=== PATIENT | male | born 1990 | race Caucasian/White ===

== ENCOUNTER 2021-04-30 00:58 | Inpatient (IN) | payer OTHER ==
[2021-04-30 01:04] LABS: Glucose,Whole Blood 99 mg/dL (75-99)
[2021-04-30] MEDS ORDERED: HYDROmorphone 1 MG/ML 1 ML SYRINGE IVP STA ×3 (01:05→02:31)
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
[2021-04-30 01:19] LABS: Basophils # (A) 0.1 k/uL (0-0.2); Basophils % (A) 1 %; Eosinophils # (A) 0.4 k/uL (0-0.7); Eosinophils % (A) 5 %; HCT 43.1 % (39.0-53.0); HGB 14.9 gm/dL (13.0-17.5); Lymphocytes # (A) 3.7 k/uL (1.0-4.8); Lymphocytes % (A) 41 %; MCH 33.4 pg (25.0-35.0); MCHC 34.6 g/dL (31.0-37.0); MCV 96.5 fL (80.0-100.0); Mean Platelet Volume 7.9; Monocytes # (A) 0.7 k/uL (0-1.0); Monocytes % (A) 7 %; Neutrophils # (A) 3.9 k/uL (1.3-7.7); Neutrophils % (A) 43 %; Platelet Count 251 k/uL (150-450); RBC 4.47 m/uL (4.30-5.90); RDW 12.8 % (11.5-15.5)
[2021-04-30 01:34] LABS: ALT 38 U/L (4-49); AST 39 U/L (17-59); African American GFR (CKD) >90 (>60 ml/min/1.73 sqM); Albumin 4.2 g/dL (3.5-5.0); Alkaline Phosphatase 58 U/L (38-126); Anion Gap 9 mmol/L; Blood Urea Nitrogen 12 mg/dL (9-20); Calcium 8.8 mg/dL (8.4-10.2); Carbon Dioxide 22 mmol/L (22-30); Chloride 103 mmol/L (98-107); Glucose 99 mg/dL (74-99); Non-African American GFR(CKD) >90 (>60 ml/min/1.73 sqM); Sodium 134 mmol/L (137-145); Total Bilirubin 0.4 mg/dL (0.2-1.3); Total Protein 6.7 g/dL (6.3-8.2)
[2021-04-30 01:35] LABS: Prothrombin Time 10.4 sec (9.0-12.0)
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
[2021-04-30 01:51] LABS: Alcohol 211 mg/dL; Potassium 4.2 mmol/L (3.5-5.1)
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
[2021-04-30] MEDS ORDERED: SODIUM CHLORIDE 0.9% 500 ML 500 ML IV ONE (02:21)
--- NOTE | 2021-04-30 02:21 | XR ---
EXAMINATION TYPE: XR foot limited LT DATE OF EXAM: 04/30/2021 COMPARISON: NONE HISTORY: Pain TECHNIQUE: 3 views FINDINGS: The metatarsals are intact. Hindfoot appears intact. The toes appear intact. IMPRESSION: No evidence of a fracture of the left foot. There is some arthritic change on the medial aspect of the IP joint of the big toe.
[2021-04-30] MEDS: SODIUM CHLORIDE 0.9% 1,000 ML IV SCH ×3 (02:22→17:40)
[2021-04-30] MEDS ORDERED: NALOXONE 0.4 MG/ML 1 ML VIAL IV PRN ×2 (02:26→16:29)
[2021-04-30] MEDS ORDERED: HYDROmorphone 0.5 MG/0.5 ML SYRINGE IVP PRN (02:26)
[2021-04-30] MEDS ORDERED: ONDANSETRON 4 MG/2 ML VIAL IVP PRN ×2 (02:26→16:29)
[2021-04-30 03:09] LABS: Appearance,Urine Clear (Clear); Bilirubin,Urine Negative (Negative); Blood,Urine Negative (Negative); Color,Urine Light Yellow; Glucose,Urine (UA) Negative (Negative); Ketones,Urine Negative (Negative); Leukocyte Esterase,Urine Negative (Negative); Nitrite,Urine Negative (Negative); Protein,Urine Negative (Negative); Specific Gravity,Urine 1.013 (1.001-1.035); Urobilinogen,Urine <2.0 mg/dL (<2.0)
[2021-04-30 03:31] LABS: Cocaine Screen,Urine Not Detected (NotDetected); Phencyclidine Screen,Urine Not Detected (NotDetected)
[2021-04-30 03:32] LABS: Amphetamine Screen,Urine Not Detected (NotDetected); Barbiturate Screen,Urine Not Detected (NotDetected); Benzodiazepines Screen,Urine Not Detected (NotDetected); Methadone Screen, Urine Not Detected (NotDetected); Opiate Screen,Urine Detected (NotDetected); Oxycodone Screen, Urine Not Detected (NotDetected); Tricyclic Antidepressant,Urine Not Detected (NotDetected); Urn Cannabinoid Scrn Detected (NotDetected)
[2021-04-30] MEDS: HYDROmorphone 1 MG/ML 1 ML SYRINGE IVP PRN ×5 (05:51→20:57)
[2021-04-30] MEDS ORDERED: MAG HYDROX/AL HYDROX/SIMETH 30 ML CUP PO PRN (06:00)
[2021-04-30] MEDS: PANTOPRAZOLE 40 MG/10 ML VIAL IV SCH (08:56)
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
[2021-04-30] MEDS ORDERED: THIAMINE 100 MG/ML 2 ML VIAL IM STA (12:24)
[2021-04-30] MEDS ORDERED: LORazepam 2 MG/ML INJ IV PRN ×3 (12:24)
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
[2021-04-30] MEDS ORDERED: IV FLUID CONTINUATION 500 ML IV ONE (14:25)
[2021-04-30] MEDS ORDERED: LIDOCAINE 1% INJ 10MG/ML (20 ML MDV) ONE (14:28)
[2021-04-30] MEDS ORDERED: ceFAZolin 1,000 MG VIAL ONE (14:28)
[2021-04-30] MEDS ORDERED: HYDROmorphone (PF) 1 MG/ML ONE (14:28)
[2021-04-30] MEDS ORDERED: SUCCINYLCHOLINE CHLORIDE 100 MG/5 ML SYR IV ONE (14:28)
[2021-04-30] MEDS ORDERED: PROPOFOL 10 MG/ML 20 ML VIAL IV ONE (14:28)
[2021-04-30] MEDS ORDERED: MIDAZOLAM 2 MG/2 ML VIAL ONE (14:28)
[2021-04-30] MEDS ORDERED: ROCURONIUM 10 MG/ML (5 ML VIAL) IV ONE (14:28)
[2021-04-30] MEDS ORDERED: SODIUM CHLORIDE 0.9% 100 ML BAG ONE (14:28)
[2021-04-30] MEDS ORDERED: fentaNYL (PF) 50 MCG/ML 2 ML AMP ONE (14:28)
[2021-04-30] MEDS ORDERED: LACTATED RINGERS 1,000 ML IV ONE (15:23)
[2021-04-30] MEDS ORDERED: ceFAZolin 1,000 MG in SODIUM CHLORIDE 0.9% 1,000 ML IRRIGATION ONE (15:24)
[2021-04-30] MEDS ORDERED: MEPERIDINE 50 MG/ML SYRINGE IM ONE (16:22)
[2021-04-30] MEDS ORDERED: MAGNESIUM HYDROXIDE 2,400 MG/10 ML CUP PO PRN (16:29)
[2021-04-30] MEDS ORDERED: NA PHOS,M-B/NA PHOS,DI-BA 133 ML ENEMA RECTAL PRN (16:29)
[2021-04-30] MEDS ORDERED: bisacodyL 10 MG SUPP RECTAL PRN (16:29)
[2021-04-30] MEDS ORDERED: HYDROcodone/APAP 7.5-325MG 1 EACH TAB PO PRN (16:32)
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
[2021-04-30] MEDS ORDERED: KETOROLAC 15 MG/ML 1 ML VIAL ONE (16:39)
--- NOTE | 2021-04-30 16:42 | XR ---
EXAMINATION TYPE: XR tibia fibula LT DATE OF EXAM: 04/30/2021 COMPARISON: NONE HISTORY: Tibia fracture TECHNIQUE: 6 views FINDINGS: A series of 6 fluoroscopic images were obtained at show placement of an intramedullary jorge with transverse screws fixing the oblique fracture of the distal shaft of the tibia. Fragments are in good position. IMPRESSION: No complicating process seen.
[2021-04-30] MEDS ORDERED: KETOROLAC 15 MG/ML 1 ML VIAL IVP ONE ×2 (16:44→16:45)
[2021-04-30] MEDS ORDERED: HYDROmorphone 0.5 MG/0.5 ML SYRINGE IVP ONE (16:45)
[2021-04-30] MEDS: THIAMINE 100 MG TAB PO SCH (17:40)
[2021-04-30] MEDS: NICOTINE 21MG/24HR PATCH TRANSDERM SCH (17:40)
[2021-04-30] MEDS: ASPIRIN 325 MG TAB PO SCH (19:49)
[2021-04-30] MEDS: SENNOSIDES-DOCUSATE SODIUM 1 EACH TAB PO SCH (19:49)
[2021-04-30] MEDS: HYDROcodone/APAP 7.5-325MG 1 EACH TAB PO PRN (19:49)
[2021-05-01] MEDS: HYDROmorphone 1 MG/ML 1 ML SYRINGE IVP PRN ×6 (00:35→20:16)
[2021-05-01] MEDS: HYDROcodone/APAP 7.5-325MG 1 EACH TAB PO PRN ×4 (03:01→23:17)
[2021-05-01] MEDS: ASPIRIN 325 MG TAB PO SCH ×2 (07:33→20:16)
[2021-05-01] MEDS: PANTOPRAZOLE 40 MG/10 ML VIAL IV SCH (07:33)
[2021-05-01] MEDS: NICOTINE 21MG/24HR PATCH TRANSDERM SCH (07:33)
[2021-05-01] MEDS: THIAMINE 100 MG TAB PO SCH ×2 (07:33→15:50)
[2021-05-01] MEDS: SODIUM CHLORIDE 0.9% 1,000 ML IV SCH ×3 (07:34→23:20)
[2021-05-01 09:36] LABS: Basophils # (A) 0.03 X 10*3/uL (0.00-0.10); Basophils % (A) 0.3 %; Eosinophils # (A) 0.13 X 10*3/uL (0.04-0.35); Eosinophils % (A) 1.3 %; HGB 13.1 g/dL (13.0-17.0); Lymphocytes # (A) 1.44 X 10*3/uL (0.90-5.00); Lymphocytes % (A) 14.3 %; MCH 31.8 pg (27.0-32.0); MCHC 32.8 g/dL (32.0-37.0); MCV 97.1 fL (80.0-97.0); Mean Platelet Volume 10.9 fL (9.5-12.2); Monocytes # (A) 1.42 X 10*3/uL (0.20-1.00); Monocytes % (A) 14.1 %; Neutrophils % (A) 69.5 %; Platelet Count 222 X 10*3/uL (140-440); RBC 4.12 X 10*6/uL (4.40-5.60); RDW 13.2 % (11.5-14.5); WBC 10.07 X 10*3/uL (4.50-10.00)
--- NOTE | 2021-05-01 09:56 | FL ---
Fluoroscopy INDICATION: Pain FINDINGS: Fluoroscopy time: 3 minutes 16 seconds. Images obtained: 0. IMPRESSIONS: 1. Documentation of fluoroscopy.
[2021-05-01 10:02] LABS: African American GFR (CKD) 139.9 (60.0-200.0); Anion Gap 2.1 mmol/L (4.00-12.00); BUN/Creat Ratio 11.25 Ratio (12.00-20.00); Calcium 8.5 mg/dL (8.7-10.3); Carbon Dioxide 27.9 mmol/L (21.6-31.8); Magnesium 1.6 mg/dL (1.5-2.4); Non-African American GFR(CKD) 120.7 (60.0-200.0); Potassium 4.2 mmol/L (3.5-5.5)
--- NOTE | 2021-05-01 10:49 | P.PN ---
Subjective Progress Note Date: 05/01/21 This is a 30-year-old male who is status post closed reduction and intramedullary nailing of the left tibia. This is postoperative day #1 and patient is seen and evaluated at bedside today. Patient states that he hasn't been able to eat anything and he is having a lot of pain. Patient denies any fever/chills, numbness, weakness, tingling, abdominal pain, shortness of breath or chest pain. Objective - Vital Signs Vital signs: Vital Signs Temp 98.9 F 05/01/21 07:00 Pulse 71 05/01/21 07:00 Resp 16 05/01/21 07:00 BP 143/78 05/01/21 07:00 Pulse Ox 100 05/01/21 07:00 Intake & Output 04/30/21 05/01/21 05/01/21 18:59 06:59 18:59 Intake Total 1791 560 Output Total 200 Balance 1591 560 Intake: IV 701 Intake, IV Titration 1090 560 Amount Sodium Chloride 0.9% 1, 1040 000 ml @ 130 mls/hr IV . [id number] [facility] Rx#:[id number] Sodium Chloride 0.9% 1, 560 000 ml @ 70 mls/hr IV . [id number] [facility] Rx#:[id number] ceFAZolin 1,000 mg In 50 Sodium Chloride 0.9% 50 ml @ 100 mls/hr IVPB Q8HR [facility] Rx#:[id number] Output: Estimated Blood Loss 200 Other: Voiding Method Urinal - Exam Vital signs are stable. Patient is in no acute distress and is alert and oriented 3. Splint is clean, dry and intact. Capillary refill is normal at less than 2 seconds. Patient is able to actively move the toes left foot. Sensation intact. Neurovascular status and circulatory status are intact. - Labs CBC & Chem 7: 05/01/21 02:52 05/01/21 02:52 Labs: Abnormal Lab Results - Last 24 Hours (Table) 05/01/21 05/01/21 Range/Units 02:52 02:52 WBC 10.07 H (4.50-10.00) X 10*3/uL RBC 4.12 L (4.40-5.60) X 10*6/uL MCV 97.1 H (80.0-97.0) fL Immature Gran # 0.05 H (0.00-0.04) X 10*3/uL Monocytes # 1.42 H (0.20-1.00) X 10*3/uL Anion Gap 2.10 L (4.00-12.00) mmol/L BUN/Creatinine Ratio 11.25 L (12.00-20.00) Ratio Calcium 8.5 L (8.7-10.3) mg/dL Microbiology - Last 24 Hours (Table) 04/30/21 01:20 Blood Culture - Preliminary Blood No Growth after 24 hours 04/30/21 01:05 Blood Culture - Preliminary Blood No Growth after 24 hours Assessment and Plan Assessment: Status post closed reduction and intramedullary nailing of the left tibia. (1) Fracture of left tibia and fibula Current Visit: Yes Status: Acute Code(s): S82.202A - UNSP FRACTURE OF SHAFT OF LEFT TIBIA, INIT FOR CLOS FX; S82.402A - UNSP FRACTURE OF SHAFT OF LEFT FIBULA, INIT FOR CLOS FX SNOMED Code(s): 137481571 Plan: 1. Nonweightbearing to the left lower extremity. 2. Physical therapy for mobilization. 3. Maintain splint to left lower extremity. Keep splint clean and dry. Elevate left lower extremity for swelling. 4. Continue routine postoperative care and pain control. 5. Aspirin for DVT prophylaxis. 6. Appreciate input from medicine. 7. Anticipate discharge home in the next 24-48 hours.
--- NOTE | 2021-05-01 11:45 | PN ---
PROGRESS NOTE CHIEF COMPLAINT: Fracture left lower leg. HISTORY OF PRESENT ILLNESS: This gentleman is having some discomfort. Surgery went well. He is not febrile. He does not have an appetite. PHYSICAL EXAMINATION: Vital signs are normal. Chest is clear. Cardiac exam is normal. Abdomen is soft and nontender. There is no blood on the dressing. IMPRESSION: Fracture of the left lower extremity. PLAN: No change in program and he will probably be able to go home in a day or 2. MMODL / IJN: [id number] /
[2021-05-01] MEDS: KETOROLAC 15 MG/ML 1 ML VIAL IVP PRN ×2 (12:23→21:45)
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
[2021-05-01] MEDS: MAGNESIUM SULFATE-D5W PMX 1 GM in DEXTROSE/WATER 1 100ML.BAG IVPB SCH ×3 (13:39→16:28)
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
[2021-05-01] MEDS: SENNOSIDES-DOCUSATE SODIUM 1 EACH TAB PO SCH (20:16)
[2021-05-02] MEDS: HYDROcodone/APAP 7.5-325MG 1 EACH TAB PO PRN ×2 (07:23→12:43)
[2021-05-02] MEDS: NICOTINE 21MG/24HR PATCH TRANSDERM SCH (08:07)
[2021-05-02] MEDS: ASPIRIN 325 MG TAB PO SCH (08:08)
[2021-05-02] MEDS: PANTOPRAZOLE 40 MG/10 ML VIAL IV SCH (08:08)
[2021-05-02] MEDS: THIAMINE 100 MG TAB PO SCH (08:08)
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
--- NOTE | 2021-05-02 09:03 | P.PN ---
Subjective Progress Note Date: 05/02/21 This is a 30-year-old male who is status post closed reduction and intramedullary nailing of the left tibia. This is postoperative day #2 and patient is seen and evaluated at bedside today. Patient states that he is still needing Dilaudid for pain and has not gotten out of bed yet. Patient denies any fever/chills, numbness, weakness, tingling, abdominal pain, shortness of breath or chest pain. Objective - Vital Signs Vital signs: Vital Signs Temp 98.9 F 05/02/21 08:47 Pulse 67 05/02/21 08:47 Resp 19 05/02/21 08:47 BP 146/79 05/02/21 08:47 Pulse Ox 99 05/02/21 08:47 Intake & Output 05/01/21 05/02/21 05/02/21 18:59 06:59 18:59 Intake Total 960 Balance 960 Intake: Intake, IV Titration 960 Amount Magnesium Sulfate-D5w Pmx 300 1 gm In Dextrose/Water 1 100ml.bag @ 100 mls/hr IVPB Q1H JONATHON Rx#: [id number] Sodium Chloride 0.9% 1, 560 000 ml @ 70 mls/hr IV . [id number] JONATHON Rx#:[id number] ceFAZolin 1,000 mg In 100 Sodium Chloride 0.9% 50 ml @ 100 mls/hr IVPB Q8HR JONATHON Rx#:[id number] Other: Voiding Method Urinal Urinal - Exam Vital signs are stable. Patient is in no acute distress and is alert and oriented 3. Splint is clean, dry and intact. Capillary refill is normal at less than 2 seconds. Patient is able to actively move the toes left foot. Sensation intact. Neurovascular status and circulatory status are intact. - Labs CBC & Chem 7: 05/01/21 02:52 05/01/21 02:52 Labs: Abnormal Lab Results - Last 24 Hours (Table) 05/01/21 05/01/21 Range/Units 02:52 02:52 WBC 10.07 H (4.50-10.00) X 10*3/uL RBC 4.12 L (4.40-5.60) X 10*6/uL MCV 97.1 H (80.0-97.0) fL Immature Gran # 0.05 H (0.00-0.04) X 10*3/uL Monocytes # 1.42 H (0.20-1.00) X 10*3/uL Anion Gap 2.10 L (4.00-12.00) mmol/L BUN/Creatinine Ratio 11.25 L (12.00-20.00) Ratio Calcium 8.5 L (8.7-10.3) mg/dL Microbiology - Last 24 Hours (Table) 04/30/21 01:20 Blood Culture - Preliminary Blood No Growth after 48 hours 04/30/21 01:05 Blood Culture - Preliminary Blood No Growth after 48 hours Assessment and Plan Assessment: Status post closed reduction and intramedullary nailing of the left tibia. (1) Fracture of left tibia and fibula Current Visit: Yes Status: Acute Code(s): S82.202A - UNSP FRACTURE OF SHAFT OF LEFT TIBIA, INIT FOR CLOS FX; S82.402A - UNSP FRACTURE OF SHAFT OF LEFT FIBULA, INIT FOR CLOS FX SNOMED Code(s): 325122310 Plan: 1. Nonweightbearing to the left lower extremity. 2. Physical therapy for mobilization. 3. Maintain splint to left lower extremity. Keep splint clean and dry. Elevate left lower extremity for swelling. 4. Continue routine postoperative care and pain control. 5. Aspirin for DVT prophylaxis. 6. Appreciate input from medicine. 7. Anticipate discharge home later today or tomorrow.
[2021-05-02 09:26] LABS: HCT 39.2 % (39.6-50.0); HGB 12.7 g/dL (13.0-17.0); MCH 31.8 pg (27.0-32.0); MCHC 32.4 g/dL (32.0-37.0); Mean Platelet Volume 10.4 fL (9.5-12.2); Platelet Count 206 X 10*3/uL (140-440); WBC 7.67 X 10*3/uL (4.50-10.00)
[2021-05-02] MEDS: KETOROLAC 15 MG/ML 1 ML VIAL IVP PRN (09:29)
[2021-05-02 10:19] LABS: African American GFR (CKD) 117.4 (60.0-200.0); Anion Gap 5.3 mmol/L (4.00-12.00); Calcium 8.3 mg/dL (8.7-10.3); Carbon Dioxide 28.7 mmol/L (21.6-31.8); Non-African American GFR(CKD) 101.3 (60.0-200.0); Potassium 4.2 mmol/L (3.5-5.5)
--- NOTE | 2021-05-02 12:21 | P.DS ---
Providers Date of admission: 04/30/21 02:26 Expected date of discharge: 05/02/21 Attending physician: David Coy Consults: 04/30/21 09:39 Consult Physician Routine Consulting Provider: Shaneka Alexander Consult Reason/Comments: medical management Do you want consulting provider notified?: Yes Primary care physician: Froilan Castano - Discharge Diagnosis(es) (1) Fracture of left tibia and fibula Current Visit: Yes Status: Acute Hospital Course: This is a 30-year-old male who sustained a fracture of the left tibia and fibula on 04/30/2021. The patient was evaluated in the emergency room and admitted for further management. After discussion and consideration patient elects to proceed with closed reduction and intramedullary nailing of the left tibia. The patient is seen preoperatively by Dr. Coy and cleared for surgery. Patient is admitted to [facility] on 04/30/2021 and closed reduction and intramedullary nailing of the left tibia is performed on 04/30/2021. The procedure is performed without complication or sequelae. The patient is doing well postoperatively. Labs and vital signs are stable on day of discharge. On day of discharge patient's splint is clean, dry and intact. There is no drainage noted at this time. Capillary refill is normal at <2 seconds. Silas rovascular status to the left lower extremity is intact. Patient is discharged home in good condition. Please see med rec for accurate list of home medications. Plan - Discharge Summary Discharge Rx Participant: Yes New Discharge Prescriptions: New HYDROcodone/APAP 7.5-325MG [[place] 7.5-325] 1 - 2 tab PO Q6H PRN #32 tab PRN Reason: Pain Sennosides [Senokot] 2 tab PO DAILY PRN #60 tablet PRN Reason: Constipation Rivaroxaban [Xarelto] 10 mg PO DAILY #30 tab Discharge Medication List HYDROcodone/APAP 7.5-325MG [[place] 7.5-325] 1 - 2 tab PO Q6H PRN #32 tab 05/02/21 [Rx] Rivaroxaban [Xarelto] 10 mg PO DAILY #30 tab 05/02/21 [Rx] Sennosides [Senokot] 2 tab PO DAILY PRN #60 tablet 05/02/21 [Rx] Follow up Appointment(s)/Referral(s): Froilan Castano MD [Primary Care Provider] - 1-2 days David Coy DO [Doctor of Osteopathic Medicine] - 10 Days Patient Instructions/Handouts: Alcohol Withdrawal (DC), Intramedullary Nailing (DC) Activity/Diet/Wound Care/Special Instructions: Strictly nonweightbearing to the left leg. Keep splint clean, dry and intact. Elevate for swelling. Please take Xarelto daily to help prevent blood clots. Please take medications as prescribed and follow up with [facility]. Call with any questions or concerns, . Discharge Disposition: HOME SELF-CARE
[2021-05-02 14:04] VITALS: BP 132/73; PULSE 70; RESP 18; TEMP 98.8
[2021-05-03] MEDS ORDERED: PANTOPRAZOLE 40 MG TABLET PO SCH (07:30)
--- NOTE | 2021-05-03 22:54 | PN ---
PROGRESS NOTE DATE OF SERVICE: 05/02/2021 CHIEF COMPLAINT: Fracture of the left lower extremity. HISTORY OF PRESENT ILLNESS: The patient is doing fairly well. He has had no fever, chills, vomiting, etc. Pain is his only issue. PHYSICAL EXAMINATION: Chest is clear. Cardiac exam is normal. Abdomen is soft, nontender. Bowel sounds are present. IMPRESSION: Fracture of the left lower leg. PLAN: Possibly home today. MMODL / IJN: [id number] /
== END 2021-05-02 15:55 | disposition home or self-care (01) | DRG 494 ==
LOC: EC 00:58 → 4SSUR 02:26
PROVIDERS: ADMIT Orthopaedic Surgery; ATTEND Orthopaedic Surgery
PROC: 8E0YXBF Computer Assisted Procedure of Lower Extremity, With Fluoroscopy (ICD-10-PCS; 2021-04-30)
PROC: HZ2ZZZZ Detoxification Services for Substance Abuse Treatment (ICD-10-PCS; 2021-04-30)
PROC: 0QSH06Z Reposition Left Tibia with Intramedullary Internal Fixation Device, Open Approach (ICD-10-PCS; principal; 2021-04-30 13:00)
DX: S82.392A Other fracture of lower end of left tibia, initial encounter for closed fracture (principal); D72.829 Elevated white blood cell count, unspecified; S82.492A Other fracture of shaft of left fibula, initial encounter for closed fracture; E83.42 Hypomagnesemia; F12.90 Cannabis use, unspecified, uncomplicated; F17.210 Nicotine dependence, cigarettes, uncomplicated; F10.20 Alcohol dependence, uncomplicated; F90.9 Attention-deficit hyperactivity disorder, unspecified type; Y92.410 Unspecified street and highway as the place of occurrence of the external cause; Y90.7 Blood alcohol level of 200-239 mg/100 ml; V03.10XA Pedestrian on foot injured in collision with car, pick-up truck or van in traffic accident, initial encounter; Y93.01 Activity, walking, marching and hiking
CPT/HCPCS: 36415; 70450; 71045; 71260; 72125; 72170; 74177; 80048; 80053; 80306; 80320; 81003; 83605; 83735; 84484; 85025; 85027; 85610; 85730; 86850; 86900; 86901; 87040; 93005

== ENCOUNTER 2021-07-29 01:54 | Emergency (ER) | payer OTHER ==
[2021-07-29 02:05] VITALS: BP 134/74; PULSE 78; RESP 18; TEMP 98.6
[2021-07-29] MEDS ORDERED: MORPHINE SULFATE 4 MG/ML SYRINGE IM STA (02:16)
[2021-07-29] MEDS ORDERED: KETOROLAC 15 MG/ML 1 ML VIAL IM STA (02:16)
--- NOTE | 2021-07-29 02:41 | XR ---
EXAMINATION TYPE: XR Hip LT and AP Pelvis DATE OF EXAM: 07/29/2021 COMPARISON: 04/30/2021 HISTORY: Left hip pain TECHNIQUE: FINDINGS: Pelvic ring is intact. Proximal left femur and hip joint appear normal. There is no hip dys plasia. Sacroiliac joints appear normal. IMPRESSION: Normal pelvis and left hip exam. No change.
[2021-07-29] MEDS ORDERED: ACET/COD 300 MG/30 MG STARTER PACK 6 TAB BTL PO STA (03:15)
--- NOTE | 2021-07-29 03:16 | ED ---
Extremity Problem HPI - General Chief complaint: Extremity Problem,Nontraumatic Stated complaint: LT leg pain Time Seen by Provider: 07/29/21 02:09 Source: patient Mode of arrival: ambulatory Limitations: physical limitation - History of Present Illness Initial comments: 31-year-old male patient presented to the emergency department today for evaluation of left medial thigh pain with radiation down to the knee. Patient states his pain has been present for the last 2 days he is unable to sleep. States he did recently have surgery to the left tib-fib and April. States he did have some similar type pain shortly after the surgery but did resolve. Denies any skin changes, fever, or chills. Denies any testicular pain or swelling. Denies difficulty with urination. Denies abdominal pain or back pain. Numbness or tingling in the leg. Denies leg swelling. - Related Data Previous Rx's Medication Instructions Recorded HYDROcodone/APAP 7.5-325MG [[place] 1 - 2 tab PO Q6H PRN #32 tab 05/02/21 7.5-325] Rivaroxaban [Xarelto] 10 mg PO DAILY #30 tab 05/02/21 Sennosides [Senokot] 2 tab PO DAILY PRN #60 tablet 05/02/21 Allergies Allergy/AdvReac Type Severity Reaction Status Date / Time No Known Allergies Allergy Verified 07/29/21 02:02 Review of Systems ROS Statement: Those systems with pertinent positive or pertinent negative responses have been documented in the HPI. ROS Other: All systems not noted in ROS Statement are negative. Past Medical History Past Medical History: No Reported History History of Any Multi-Drug Resistant Organisms: None Reported Past Surgical History: Orthopedic Surgery Past Psychological History: ADD/ADHD Smoking Status: Current every day smoker Past Alcohol Use History: None Reported Past Drug Use History: Marijuana General Exam Limitations: physical limitation General appearance: alert, in no apparent distress, other (This is a well- developed, well-nourished adult male patient in no acute distress) Respiratory exam: Present: normal lung sounds bilaterally. Absent: respiratory distress, wheezes, rales, rhonchi, stridor Cardiovascular Exam: Present: regular rate, normal rhythm, normal heart sounds. Absent: systolic murmur, diastolic murmur, rubs, gallop, clicks Extremities exam: Present: normal inspection, full ROM, normal capillary refill, other (And the left leg is pink, warm, dry. Cap refill less than 3 seconds. Pedal and posttibial pulses 2+). Absent: tenderness, pedal edema, joint swelling, calf tenderness Neurological exam: Present: alert, oriented X3, CN II-XII intact Psychiatric exam: Present: normal affect, normal mood Skin exam: Present: warm, dry, intact, normal color. Absent: rash Course Vital Signs 07/29/21 02:03 Temperature 98.6 F Pulse Rate 78 Respiratory 18 Rate Blood Pressure 134/74 O2 Sat by Pulse 97 Oximetry Medical Decision Making - Medical Decision Making 31-year-old male patient presented to the emergency department today for evaluation of left leg pain. Physical examination was unremarkable. He is neurologically and neurovascularly intact. No tenderness over the area. Full range of motion is intact. X-ray is are negative. He was given pain medication here. Upon reevaluation is resting comfortable. States he does feel better. He'll be discharged follow up with orthopedics later today as he has planned. Return parameters were discussed in detail. He verbalizes understanding and agrees with this plan. Case discussed with my attending Dr. Parra. - Radiology Data Radiology results: report reviewed, image reviewed X-ray of the left hip and pelvis is obtained. Report is reviewed in its entirety. Impression by Dr. Stroud shows normal pelvis and left hip exam. No change. Disposition Clinical Impression: Left leg pain Disposition: HOME SELF-CARE Condition: Good Instructions (If sedation given, give patient instructions): Leg Pain (ED) Additional Instructions: Take pain medication as directed. Follow-up with or throat nausea planned. Return for any new, worsening, or concerning symptoms. Is patient prescribed a controlled substance at d/c from ED?: No Referrals: Froilan Castano MD [Primary Care Provider] - 1-2 days Time of Disposition: 03:16
== END 2021-07-29 03:21 | disposition home or self-care (01) ==
LOC: EC 01:54
DX: M79.652 Pain in left thigh (principal); F90.9 Attention-deficit hyperactivity disorder, unspecified type; F17.200 Nicotine dependence, unspecified, uncomplicated; F12.90 Cannabis use, unspecified, uncomplicated
CPT/HCPCS: 99283; 96372 ×2; 73502; J2270; J1885

== ENCOUNTER → 2021-09-03 | Outpatient (CLI) | payer OTHER ==
--- NOTE | 2021-09-03 10:00 | XR ---
EXAMINATION TYPE: XR chest 2V DATE OF EXAM: 09/03/2021 COMPARISON: Chest x-ray 04/30/2021 HISTORY: Z02.1 TECHNIQUE: Frontal and lateral views of the chest are obtained. FINDINGS: There is no focal air space opacity, pleural effusion, or pneumothorax seen. The cardiac silhouette size is within normal limits. The osseous structures are intact. IMPRESSION: No acute cardiopulmonary process.
== END | disposition home or self-care (01) ==
LOC: RADXRMAIN 09:12
PROVIDERS: ATTEND Emergency Medicine
DX: Z02.1 Encounter for pre-employment examination (principal)
CPT/HCPCS: 71046

== ENCOUNTER 2023-01-12 12:14 | Emergency (ER) | payer OTHER ==
[2023-01-12] MEDS ORDERED: MORPHINE SULFATE 4 MG/ML SYRINGE IM STA (12:27)
[2023-01-12 12:47] VITALS: RESP 18
--- NOTE | 2023-01-12 13:18 | XR ---
EXAMINATION TYPE: XR hand complete RT DATE OF EXAM: 01/12/2023 CLINICAL HISTORY: Crushing injury with pain TECHNIQUE: Frontal, lateral and oblique images of the right hand are obtained. COMPARISON: Prior right hand x-ray July 31, 2010 FINDINGS: There is no acute fracture/dislocation evident in the right hand. The joint spaces in the right hand appear within normal limits. The overlying soft tissue appears unremarkable. IMPRESSION: There is no acute fracture or dislocation in the right hand.
--- NOTE | 2023-01-12 13:25 | ED ---
Upper Extremity HPI - General Chief Complaint: Extremity Injury, Upper Stated Complaint: [facility] - Finger Injury Time Seen by Provider: 01/12/23 12:24 Source: patient Mode of arrival: ambulatory Limitations: no limitations - History of Present Illness Initial Comments: This is a nontoxic-appearing pleasant 32-year-old male that presents to the emergency room ambulatory with complaints of getting his right hand crushed in a press at work about 10:30 today. Patient states increased pain to the right ring finger. Patient does have good range of motion. Tetanus shot is up-to-date. MD Complaint: Injury to:: right, hand, finger (ring) Severity scale (1-10): 10 Improves With: none Worsens With: movement of extremity Context: crush (press) Associated Symptoms: denies other symptoms Treatments Prior to Arrival: cold therapy - Related Data Previous Rx's Medication Instructions Recorded HYDROcodone/APAP 7.5-325MG [[place] 1 - 2 tab PO Q6H PRN #32 tab 05/02/21 7.5-325] Rivaroxaban [Xarelto] 10 mg PO DAILY #30 tab 05/02/21 Sennosides [Senokot] 2 tab PO DAILY PRN #60 tablet 05/02/21 Ibuprofen [Motrin] 600 mg PO Q8HR PRN #30 tab 01/12/23 Allergies Allergy/AdvReac Type Severity Reaction Status Date / Time No Known Allergies Allergy Verified 01/12/23 12:19 Review of Systems ROS Statement: Those systems with pertinent positive or pertinent negative responses have been documented in the HPI. ROS Other: All systems not noted in ROS Statement are negative. Past Medical History Past Medical History: No Reported History History of Any Multi-Drug Resistant Organisms: None Reported Past Surgical History: Orthopedic Surgery Additional Past Surgical History / Comment(s): lt leg Past Psychological History: ADD/ADHD Smoking Status: Current every day smoker Past Alcohol Use History: None Reported Past Drug Use History: Marijuana General Exam Limitations: no limitations General appearance: alert, in no apparent distress Head exam: Present: atraumatic Eye exam: Present: normal appearance. Absent: scleral icterus, conjunctival injection, periorbital swelling, periorbital tenderness ENT exam: Present: mucous membranes moist Neck exam: Present: full ROM. Absent: tenderness, meningismus Respiratory exam: Absent: respiratory distress, accessory muscle use Cardiovascular Exam: Present: regular rate Right Hand Wrist exam: Present: full ROM, tenderness, swelling, subungual hematoma (Right ring finger). Absent: abrasion, laceration, ecchymosis, deformity, crepitus, dislocation, erythema, amputation, nail avulsion Neuro motor exam: Present: thumb opposition intact, thumb IP flexion intact, thumb adduction intact Neurosensory exam: Present: radial nerve intact, ulnar nerve intact, median nerve intact Vascular: Present: normal capillary refill. Absent: vascular compromise Neurological exam: Present: alert, oriented X3, normal gait Psychiatric exam: Present: normal affect, normal mood Skin exam: Present: warm, dry, normal color. Absent: cyanosis, diaphoretic, petechiae, pallor Course Vital Signs 01/12/23 01/12/23 12:15 12:45 Temperature 98.1 F 98.9 F Pulse Rate 59 L 68 Respiratory 20 18 Rate Blood Pressure 154/85 153/78 O2 Sat by Pulse 99 98 Oximetry Medical Decision Making - Medical Decision Making X-ray of the right hand interpreted by me shows no evidence of fracture or dislocation. Radiologist's interpretation no acute fracture or dislocation of the right hand. Patient is right-handed. Trephination performed of the right ring finger successful. Patient was given IM morphine with pain relief. He states his tetanus shot is up-to-date. Patient does have full range of motion of his right hand. Neurovascularly intact. He was directed to follow up with his primary care doctor. Limit the use of his right hand for the next 3 days and activity to be limited to pain tolerance. Patient is agreeable to this plan of care. Case discussed with Dr. Finch. Was pt. sent in by a medical professional or institution (, PA, SALES REPRESENTATIVE FACILITY SERVICES, urgent care, hospital, or skilled nursing...) When possible be specific @ -No Did you speak to anyone other than the patient for history (EMS, parent, family, police, friend...)? What history was obtained from this source @ -No Did you review nursing and triage notes (agree or disagree)? Why? @ -I reviewed and agree with nursing and triage notes Were old charts reviewed (outside hosp., previous admission, EMS record, old EKG, old radiological studies, urgent care reports/EKG's, skilled nursing records)? Report findings @ -No old charts were reviewed Differential Diagnosis (chest pain, altered mental status, abdominal pain women, abdominal pain men, vaginal bleeding, weakness, fever, dyspnea, syncope, headache, dizziness, GI bleed, back pain, seizure, CVA, palpatations, mental health, musculoskeletal)? @ -Fracture, dislocation, laceration, contusion, subungual hematoma EKG interpreted by me (3pts min.). @ -n/a X-rays interpreted by me (1pt min.). @ -Yes as above CT interpreted by me (1pt min.). @ -None done U/S interpreted by me (1pt. min.). @ -None done What testing was considered but not performed or refused? (CT, X-rays, U/S, labs)? Why? @ -None What meds were considered but not given or refused? Why? @ -Tetanus was considered however up-to-date Did you discuss the management of the patient with other professionals (professionals i.e. , PA, SALES REPRESENTATIVE FACILITY SERVICES, lab, RT, psych nurse, social media marketing manager, head animal keeper, teacher, geospatial program management officer, embedded case manager)? Give summary @ -No Was smoking cessation discussed for >3mins.? @ -No Was critical care preformed (if so, how long)? @ -No Were there social determinants of health that impacted care today? How? (Homelessness, low income, unemployed, alcoholism, drug addiction, transportation, low edu. Level, literacy, decrease access to med. care, senior care, rehab)? @ -No Was there de-escalation of care discussed even if they declined (Discuss DNR or withdrawal of care, Hospice)? DNR status @ -No What co-morbidities impacted this encounter? (DM, HTN, Smoking, COPD, CAD, Cancer, CVA, ARF, Chemo, Hep., AIDS, mental health diagnosis, sleep apnea, morbid obesity)? @ -None Was patient admitted / discharged? Hospital course, mention meds given and route, prescriptions, significant lab abnormalities, going to OR and other pertinent info. @ -Discharged Undiagnosed new problem with uncertain prognosis? @ -No Drug Therapy requiring intensive monitoring for toxicity (Heparin, Nitro, Insulin, Cardizem)? @ -No Were any procedures done? @ -Trephination Diagnosis/symptom? @ -Hand sprain, subungual hematoma Acute, or Chronic, or Acute on Chronic? @ -Acute Uncomplicated (without systemic symptoms) or Complicated (systemic symptoms)? @ -Uncomplicated Side effects of treatment? @ -No Exacerbation, Progression, or Severe Exacerbation? @ -No Poses a threat to life or bodily function? How? (Chest pain, [place], [place], pneumonia, PE, COPD, DKA, ARF, appy, cholecystitis, CVA, Diverticulitis, Homicidal, Suicidal, threat to staff... and all critical care pts) @ -No Disposition Clinical Impression: Injury of right hand, Subungual hematoma of finger Disposition: HOME SELF-CARE Condition: Good Instructions (If sedation given, give patient instructions): Subungual Hematoma (ED), Hand Sprain (ED) Additional Instructions: Soak finger in warm soapy water twice a day for the next 2 days. Follow-up with your primary care doctor next week. Tylenol and or Motrin as needed for any pain or discomfort. Return to the emergency room with any new or concerning symptoms. Prescriptions: Ibuprofen [Motrin] 600 mg PO Q8HR PRN #30 tab PRN Reason: Pain Is patient prescribed a controlled substance at d/c from ED?: No Referrals: Froilan Castano MD [Primary Care Provider] - 1-2 days Time of Disposition: 13:25
[2023-01-12 13:55] VITALS: BP 143/85; PULSE 65; TEMP 97.3
== END 2023-01-12 13:55 | disposition home or self-care (01) ==
LOC: EC 12:14
DX: S60.141A Contusion of right ring finger with damage to nail, initial encounter (principal); F90.9 Attention-deficit hyperactivity disorder, unspecified type; F17.200 Nicotine dependence, unspecified, uncomplicated; F12.90 Cannabis use, unspecified, uncomplicated; W23.0XXA Caught, crushed, jammed, or pinched between moving objects, initial encounter
CPT/HCPCS: 73130; 99283; 96372; J2270